=== PATIENT | male | born 1995 | race Caucasian/White ===

== ENCOUNTER 2016-07-27 21:29 | Emergency (ER) | payer SELFPAY ==
[~2016-07-27] VITALS: Ht 165.1 cm; Wt 65.8 kg
[2016-07-27 21:35] VITALS: BP 112/76
--- NOTE | 2016-07-27 22:10 | PHYS DOC ---
General Chief Complaint: SORE THROAT Stated Complaint: SORE THROAT X 2 WKS Time Seen by MD: 21:30 Source: patient Exam Limitations: no limitations Problems: History of Present Illness Initial Comments Pt is 20/M to ED with mom c/o ST. Pt states he's had a sore throat for two weeks. States it hurts badly enough that he's not eating solids just drinking. Has h/o tonsillitis, wanted to be sure no recurrance. He also states he's had strep exposure recently. No measured fevers, no chills/myalgias, no dyspnea/ramirez/dysphagia. OTC meds not helping. Still smoking cigarettes. Timing/Duration: gradual, last week Severity: moderate Location: throat Prearrival Treatment: over the counter meds Modifying Factors: worse with coughing Associated Symptoms: cough, malaise, poor solids intake, sore throat Allergies: Coded Allergies: Penicillins (Verified Allergy, Intermediate, Unknown, 07/27/16) Past Medical History Medical History: no pertinent history Surgical History: no surgical history Social History Smoker: cigarettes Alcohol: none Drugs: none Constitutional: denies chills, denies fever, malaise Ears: denies dizziness, denies pain, denies tinnitus Nose: denies congestion, denies epistaxis Throat: see HPIdenies neck stiffness Respiratory: denies cough, denies shortness of breath Cardiovascular: denies chest pain, denies palpitations Gastrointestinal: denies diarrhea, denies nausea, denies vomiting Neurological: denies headache, denies numbness, denies paresthesia Physical Exam General Appearance: WD/WN, no apparent distress Eyes: bilateral eye EOMI, bilateral eye PERRL, bilateral eye normal inspection Nose: normal inspection Mouth/Throat: other (pharynx beefy red with exudate, airway clear) Neck: trachea midline (tender shotty LA b/l) Cardiovascular/Respiratory: normal breath sounds, no respiratory distress Neurologic/Psychiatric: staff internist office based only II-XII nml as tested, no motor/sensory deficits, alert, normal mood/affect, oriented x 3 Skin: normal color, warm/dry Orders, Labs, Meds Advised to stop smoking. Pt expressed agreement/understanding with treatment plan. Departure Time of Disposition: 22:08 Disposition: 01 HOME, SELF-CARE Diagnosis: pharyngitis, tobaccoism Condition: GOOD Patient Instructions: Smoking, You Can Quit, [id number], Viral and Bacterial Pharyngitis, [id number] Additional Instructions: Rest, no strenuous activity. Aggressive hydration with gatorade, water. OTC tylenol/ibuprofen/analgesic throat sprays as needed. Stop smoking, seek medical assistance if necessary. Follow up with your doctor in 7-10 days if not better. Return to ED with new or changing symptoms. CHERELLE KRAUSE DO Jul 27, 2016 22:10
[2016-07-27] MEDS ORDERED: AZITHROMYCIN 250 MG TABLET. PO ONE (22:15)
== END 2016-07-27 22:40 | disposition home or self-care (01) ==
LOC: ER 21:29
DX: J02.9 Acute pharyngitis, unspecified (principal); F17.210 Nicotine dependence, cigarettes, uncomplicated; Z88.0 Allergy status to penicillin
CPT/HCPCS: 99282; J0456

== ENCOUNTER 2017-08-09 10:24 | Emergency (ER) | payer SELFPAY ==
[2017-08-09 10:30] VITALS: BP 141/91
--- NOTE | 2017-08-09 10:49 | PHYS DOC ---
Past History Past Medical History: Other Past Surgical History: No Surgical History Alcohol Use: Occasionally Additional Alcohol Information: reports hx of heavy alcohol use for a few years Drug Use: None Adult General Chief Complaint Chief Complaint: CONSTIPATION HPI HPI Patient is a 22 year old male who presents with superior pubic abdominal discomfort and no bowel movement within the last 5 days. He states usually he has 2 bowel movements a day about 5 days ago he hasn't had one. He's tried half of the container of MiraLAX, Ex-Lax pills and currently is drinking cran apple juice. He states the discomfort is above his iliac bone and is crampy in nature. He states he is passing gas but a small amount. He has no history of abdominal surgeries. 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 He states he's not been sick he's been feeling well. He has not had any nausea or vomiting or diarrhea. Face he did have a history of heavy alcohol abuse and used to drink a fifth a day for about a year and a stop doing that. He denies any dysuria. He states he's been urinating without any difficulty. Review of Systems Review of Systems Constitutional: Denies fever or chills [] Eyes: Denies change in visual acuity, redness, or eye pain [] HENT: Denies nasal congestion or sore throat [] Respiratory: Denies cough or shortness of breath [] Cardiovascular: No additional information not addressed in HPI [] GI: Positive for mild crampy-type suprapubic abdominal pain, Denies nausea, vomiting, bloody stools or diarrhea [] : Denies dysuria or hematuria [] Musculoskeletal: Denies back pain or joint pain [] Integument: Denies rash or skin lesions [] Neurologic: Denies headache, focal weakness or sensory changes [] Endocrine: Denies polyuria or polydipsia [] All other systems were reviewed and found to be within normal limits, except as documented in this note. Allergies Allergies Allergies Coded Allergies Type Severity Reaction Last Updated Verified Penicillins Allergy Intermediate Unknown 07/27/16 Yes Physical Exam Physical Exam Constitutional: Well developed, well nourished, no acute distress, non-toxic appearance. [] HENT: Normocephalic, atraumatic, bilateral external ears normal, oropharynx moist, no oral exudates, nose normal. [] Eyes: PERRLA, EOMI, conjunctiva normal, no discharge. [] Neck: Normal range of motion, no tenderness, supple, no stridor. [] Cardiovascular:Heart rate regular rhythm, no murmur [] Lungs & Thorax: Bilateral breath sounds clear to auscultation [] Abdomen: Bowel sounds normal, soft, no tenderness, no masses, no pulsatile masses. [] Skin: Warm, dry, no erythema, no rash. [] Back: No tenderness, no CVA tenderness. [] Extremities: No tenderness, no cyanosis, no clubbing, ROM intact, no edema. [] Neurologic: Alert and oriented X 3, normal motor function, normal sensory function, no focal deficits noted. [] Psychologic: Affect normal, judgement normal, mood normal. [] Current Patient Data Vital Signs Vital Signs Date Time Temp Pulse Resp B/P (MAP) Pulse Ox O2 Delivery O2 Flow Rate FiO2 08/09/17 10:30 98.2 83 18 100 Room Air EKG EKG [] Radiology/Procedures Radiology/Procedures [address] [address] IMAGING REPORT Signed PATIENT: MARY RILEY ACCOUNT: [id number] : 1995 LOCATION: ER AGE: 22 SEX: M EXAM STATUS: REG ER ORD. PHYSICIAN: RYLEE JUSTICE MD REASON: abd pain PROCEDURE: ACUTE ABDOMEN SERIES ACUTE ABDOMEN SERIES History: Abdominal pain, constipation Comparison: None. Findings: Single view of the chest and single supine and upright views of the abdomen are submitted. There is no infiltrate, pleural fluid, pneumothorax. There is no free air. There is nonobstructive bowel gas pattern. No unusual calcifications are identified of the abdomen or pelvis. Impression: 1. No acute radiographic abnormality is identified. Electronically signed by: Yuli Fu MD (08/09/2017 11:09 AM) [facility] DICTATED AND SIGNED BY: YULI FU MD DATE: 08/09/17 1107 CC: RYLEE JUSTICE MD; PCP,NO ~ Impressions: Constipation Course & Med Decision Making Course & Med Decision Making Pertinent Labs and Imaging studies reviewed. (See chart for details) Patient was given an enema and had some success in some relief. He states is crampy-type abdominal pain has significantly improved after the enema. He's requesting the go home and see if he can do additional enemas at home. He is instructed that if he has worsening pain fevers or other concerns return back to ER for additional testing. His mom's present in his conversation and is also agreeable to the plan. He is instructed to use mag citrate and Fleet enemas at home. Dragon Disclaimer Dragon Disclaimer This electronic medical record was generated, in whole or in part, using a voice recognition dictation system. Departure Departure: Impression: Primary Impression: Constipation Disposition: HOME, SELF-CARE Condition: STABLE Referrals: PCPJOHN (PCP) GARCÍA IRELAND MD Patient Instructions: Constipation, Adult Additional Instructions: You were seen today for your constipation. You can follow-up with GI. Please call Dr. Lundy's office and schedule follow-up appointment if this persists. He can use [id number] Fleet enemas and mag citrate. Both of these can be purchases without a prescription in the GI/constipation area of the pharmacy. If you develop worsening abdominal pain, fevers, uncontrolled nausea vomiting or other concerns please return back to the ER immediately for additional tests. Problem Qualifiers Primary Impression: Constipation Constipation type: unspecified constipation type Qualified Codes: K59.00 - Constipation, unspecified RYLEE JUSTICE MD Aug 09, 2017 10:49
--- NOTE | 2017-08-09 11:12 | RAD ---
ACUTE ABDOMEN SERIES History: Abdominal pain, constipation Comparison: None. Findings: Single view of the chest and single supine and upright views of the abdomen are submitted. There is no infiltrate, pleural fluid, pneumothorax. There is no free air. There is nonobstructive bowel gas pattern. No unusual calcifications are identified of the abdomen or pelvis. Impression: 1. No acute radiographic abnormality is identified. Electronically signed by: Zeeshan Abreu MD (08/09/2017 11:09 AM) [facility]
[2017-08-09] MEDS ORDERED: SODIUM PHOSPHATES 19/7GM 133 ML ENEMA. PR ONE ×2 (11:45→12:30)
== END 2017-08-09 12:35 | disposition home or self-care (01) ==
LOC: ER 10:24
DX: K59.00 Constipation, unspecified (principal); F10.10 Alcohol abuse, uncomplicated; Z88.0 Allergy status to penicillin
CPT/HCPCS: 74022; 99284

== ENCOUNTER 2017-08-13 01:39 | Emergency (ER) | payer SELFPAY ==
[~2017-08-13] VITALS: Ht 165.1 cm; Wt 65.8 kg
[2017-08-13 01:40] VITALS: BP 138/66
--- NOTE | 2017-08-13 02:25 | ED.ADGEN ---
Past History Past Medical History: Other Past Surgical History: No Surgical History Alcohol Use: Occasionally Drug Use: None Adult General Chief Complaint Chief Complaint Constipation HPI HPI Patient is a 22 year old ulcer and in the emergency department 3 days ago for constipation who presents with intermittent abdominal pain rating to left flank. Patient was given an enema emergency department has taken enemas at home in addition to magnesium citrate and MiraLAX. States he still has difficulty having bowel movements. Currently denies abdominal pain. No nausea or vomiting. Denies narcotic use or chronic constipation. No prior abdominal surgeries. Patient has not yet established with a primary care physician. Denies other symptoms or complaints. [] Review of Systems Review of Systems Review symptoms as per history of present illness. All other review symptoms are negative. All other systems were reviewed and found to be within normal limits, except as documented in this note. Allergies Allergies Allergies Coded Allergies Type Severity Reaction Last Updated Verified Penicillins Allergy Intermediate Unknown 07/27/16 Yes Physical Exam Physical Exam Constitutional: Well developed, well nourished, no acute distress, non-toxic appearance. [] HENT: Normocephalic, atraumatic, bilateral external ears normal, oropharynx moist, no oral exudates, nose normal. [] Eyes: PERRL Lungs & Thorax: Bilateral breath sounds clear to auscultation [] Abdomen: Bowel sounds normal, soft, bowel sounds, mild distention, no tenderness , rebound rigidity or guarding. [] rash. [] Back: No tenderness, no CVA tenderness. [] Extremities: No tenderness. [] Neurologic: Alert and oriented X 3, normal motor function, normal sensory function, no focal deficits noted. [] Psychologic: Affect normal, judgement normal, mood normal. [] EKG EKG [] Radiology/Procedures Radiology/Procedures [Acute abdominal series date 08/09/17 reviewed: No Acute findings per radiology report] Course & Med Decision Making Course & Med Decision Making Pertinent Labs and Imaging studies reviewed. (See chart for details) [Abdomen is soft, nonsurgical. Patient does not clinically have findings of bowel obstruction. Recent x-ray reviewed. Recommend GoLYTELY bowel prep, continue enemas and no local PCP follow-up.] Final Impression Final Impression [1. Abdominal pain 2. constipation] Problems: Dragon Disclaimer Dragon Disclaimer This electronic medical record was generated, in whole or in part, using a voice recognition dictation system. EMILY LIZ DO Aug 13, 2017 02:25
== END 2017-08-13 02:26 | disposition home or self-care (01) ==
LOC: ER 01:39
DX: K59.00 Constipation, unspecified (principal); Z88.0 Allergy status to penicillin
CPT/HCPCS: 99283

== ENCOUNTER 2018-09-08 08:39 | Emergency (ER) | payer BC ==
[~2018-09-08] VITALS: Ht 165.1 cm; Wt 77.5 kg
[2018-09-08] MEDS ORDERED: IV NORMAL SALINE 1,000ML 1,000 ML IV ONE (09:00)
[2018-09-08 09:09] LABS: BASO # 0.1 x10^3/uL (0.0-0.2); BASO % 1 % (0-3); EOS # 0.2 x10^3/uL (0.0-0.7); EOS % 3 % (0-3); HEMATOCRIT 44.4 % (39.0-53.0); HEMOGLOBIN 15.2 g/dL (13.0-17.5); LYMPH # 2.9 x10^3/uL (1.0-4.8); LYMPH % 34 % (24-48); MEAN CORPUSCULAR HEMOGLOBIN 29 pg (25-35); MEAN CORPUSCULAR HGB CONC 34 g/dL (31-37); MEAN CORPUSCULAR VOLUME 85 fL (79-100); MONO # 0.6 x10^3/uL (0.0-1.1); MONO % 7 % (0-9); NEUT # 4.7 x10^3uL (1.8-7.7); NEUT % 55 % (31-73); PLATELET COUNT 256 x10^3/uL (140-400); RED BLOOD COUNT 5.24 x10^6/uL (4.30-5.70); RED CELL DISTRIBUTION WIDTH 13.1 % (11.5-14.5); WHITE BLOOD COUNT 8.6 x10^3/uL (4.0-11.0)
--- NOTE | 2018-09-08 09:11 | EKG ---
[address] [address] Test Date: 2018-09-08 Test Time: 08:51:29 Pat Name: MARY RILEY Department: Room: Gender: M Switchboard Operator: : 1995 Requested By: EMILY GRAJEDA Order Number: [id number] Reading MD: Miller Huntley Measurements Intervals Divide Rate: 73 P: 53 NH: 180 QRS: 70 QRSD: 82 T: 44 QT: 362 QTc: 402 Interpretive Statements SINUS RHYTHM MILD NONSPECIFIC ST-T WAVE CHANGES. Electronically Signed On 09-10-2018 16:17:27 CDT by Miller Huntley
--- NOTE | 2018-09-08 09:16 | PHYS DOC ---
Past History Past Medical History: Other Past Surgical History: No Surgical History Alcohol Use: Occasionally Drug Use: None Adult General Chief Complaint Chief Complaint: Palpitations HPI HPI 23-year-old male presents with palpitations. Patient states that he has been feeling like his heart is flopping since September 02, 6 days ago. The feeling is intermittent, but is been more frequent the last 1 day. The patient is to drinking a large amount of alcohol on the , but none since. He smokes marijuana occasionally. He denies any other drug use. Last night, the patient felt like he was having multiple episodes and was unable to get very much sleep. He kept waking up when he did fall asleep. He admits that he could be some anxiety, but he is concerned there may be something else going on. 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 He is no longer getting treatment for this condition except for smoking marijuana. He denies fever, chills, or recent illness. Review of Systems Review of Systems Constitutional: Denies fever or chills [] Eyes: Denies change in visual acuity, redness, or eye pain [] HENT: Denies nasal congestion or sore throat [] Respiratory: Denies cough or shortness of breath [] Cardiovascular: No additional information not addressed in HPI [] GI: Denies abdominal pain, nausea, vomiting, bloody stools or diarrhea [] : Denies dysuria or hematuria [] Musculoskeletal: Denies back pain or joint pain [] Integument: Denies rash or skin lesions [] Neurologic: Denies headache, focal weakness or sensory changes [] Endocrine: Denies polyuria or polydipsia [] All other systems were reviewed and found to be within normal limits, except as documented in this note. Current Medications Current Medications Current Medications Medications (Trade) Dose Ordered Sig/Ty Start Time Stop Time Status Last Admin Dose Admin Sodium Chloride 1,000 ml @ 1,000 mls/hr 1X ONCE 09/08/18 09:00 09/08/18 09:59 09/08/18 09:10 1,000 MLS/HR Allergies Allergies Allergies Coded Allergies Type Severity Reaction Last Updated Verified Penicillins Allergy Intermediate Unknown 07/27/16 Yes Physical Exam Physical Exam Constitutional: Well developed, well nourished, no acute distress, non-toxic appearance. [] HENT: Normocephalic, atraumatic, bilateral external ears normal, oropharynx moist, no oral exudates, nose normal. [] Eyes: PERRLA, EOMI, conjunctiva normal, no discharge. [] Neck: Normal range of motion, no tenderness, supple, no stridor. [] Cardiovascular:Heart rate regular rhythm, no murmur [] Lungs & Thorax: Bilateral breath sounds clear to auscultation [] Abdomen: Bowel sounds normal, soft, no tenderness, no masses, no pulsatile masses. [] Skin: Warm, dry, no erythema, no rash. [] Back: No tenderness, no CVA tenderness. [] Extremities: No tenderness, no cyanosis, no clubbing, ROM intact, no edema. [] Neurologic: Alert and oriented X 3, normal motor function, normal sensory function, no focal deficits noted. [] Psychologic: Affect normal, judgement normal, mood anxious. [] EKG EKG Sinus rhythm, rate 73, normal axis, no ST elevations or depressions.[] Radiology/Procedures Radiology/Procedures [] Impressions: Chest, 2 views, 09/08/2018: HISTORY: Palpitations The heart size is normal. No pulmonary infiltrate is seen. There is no evidence of pleural fluid. IMPRESSION: No acute cardiopulmonary abnormality is detected. Electronically signed by: Bernard Gaitan MD (09/08/2018 9:46 AM) [facility] DICTATED AND SIGNED BY: BERNARD GAITAN MD DATE: 09/08/18 0946 CC: EMILY GRAJEDA DO; PCP,NO ~ Course & Med Decision Making Course & Med Decision Making Pertinent Labs and Imaging studies reviewed. (See chart for details) The patient's chest x-ray is unremarkable. His EKG is unremarkable. His labs are unremarkable. His troponin is negative. I believe the patient may be having an anxiety reaction more than anything. His original feeling could have been a side effect from his drinking, but being worried about a more serious condition may be exacerbating his symptoms. I will give him a trial prescription of hydroxyzine to try at home for intermittent anxiety. He will follow-up with his PCP as needed. He is stable for discharge at this time. [] Dragon Disclaimer Dragon Disclaimer This electronic medical record was generated, in whole or in part, using a voice recognition dictation system. Departure Departure: Impression: Primary Impression: Anxiety Additional Impression: Palpitations Disposition: 01 HOME, SELF-CARE Condition: STABLE Referrals: PCP,NO (PCP) Patient Instructions: Anxiety and Panic Attacks, Locx-[id number], Palpitations, Rdri-[id number] Scripts Hydroxyzine Hcl (HYDROXYZINE HCL) 25 Mg Tablet 1 TAB PO TID PRN for ANXIETY, #30 TAB Prov: EMILY GRAJEDA DO 09/08/18 Problem Qualifiers EMILY GRAJEDA DO September 08, 2018 09:16
[2018-09-08 09:28] LABS: ALBUMIN/GLOBULIN RATIO 1.1 (1.0-1.7); CALCIUM 9.6 mg/dL (8.5-10.1); CREATININE 1.1 mg/dL (0.7-1.3); GFR 83.7; POTASSIUM 3.7 mmol/L (3.5-5.1); TOTAL BILIRUBIN 0.6 mg/dL (0.2-1.0); TOTAL PROTEIN 7.7 g/dL (6.4-8.2)
--- NOTE | 2018-09-08 09:49 | RAD ---
Chest, 2 views, 09/08/2018: HISTORY: Palpitations The heart size is normal. No pulmonary infiltrate is seen. There is no evidence of pleural fluid. IMPRESSION: No acute cardiopulmonary abnormality is detected. Electronically signed by: Bernard Gaitan MD (09/08/2018 9:46 AM) [facility]
[2018-09-08 10:28] LABS: AMPHETAMINE/METHAMPHETAMINE NEG (NEG); BARBITURATES NEG (NEG); BENZODIAZEPINES NEG (NEG); CANNABINOIDS POS (NEG); COCAINE NEG (NEG); METHADONE NEG (NEG); OPIATES NEG (NEG); PHENCYCLIDINE NEG (NEG)
[2018-09-08 10:29] VITALS: BP 110/52
[2018-09-08 10:30] LABS: BILIRUBIN,URINE NEG (NEG); CLARITY,URINE CLEAR; COLOR,URINE YELLOW; GLUCOSE,URINE NEG (NEG)
[2018-09-08 10:31] LABS: BACTERIA,URINE 0 /HPF (0-FEW); NITRITE,URINE NEG (NEG); RBC,URINE RARE /HPF (0-2); SQUAMOUS EPITHELIAL CELL,UR OCC /LPF; UROBILINOGEN,URINE 0.2 mg/dL (0.2 mg/dL); WBC,URINE RARE /HPF (0-4)
[2018-09-08] MEDS ORDERED: HYDR25TA PO (10:33)
== END 2018-09-08 10:55 | disposition home or self-care (01) ==
LOC: ER 08:39
DX: F41.9 Anxiety disorder, unspecified (principal); F12.90 Cannabis use, unspecified, uncomplicated; Z88.0 Allergy status to penicillin
CPT/HCPCS: 36415; 71046; 80053; 80307; 81001; 84484; 85025; 93005; 99285-25; J7030

== ENCOUNTER 2020-09-12 22:16 | Emergency (ER) | payer SELFPAY ==
[~2020-09-12] VITALS: Ht 165.1 cm; Wt 77.5 kg
[~2020-09-12 22:16] MED LIST: HYDR25TA PO
[2020-09-12 22:30] VITALS: BP 130/83
--- NOTE | 2020-09-12 23:35 | PHYS DOC ---
Past History Past Medical History: Other Past Surgical History: No Surgical History Alcohol Use: Occasionally Drug Use: Marijuana General Adult EDM: Chief Complaint: SEXUALLY TRANSMITTED DISEASE HPI: HPI: 25-year-old male presents with dysuria. Patient states that he is having burning with urination. He is concerned about STD but admits he has not had sex in a couple months. He has never had symptoms like this before. No history of UTIs. He denies any rash on around the genitals. No urethral discharge. He has no other complaints this time. Review of Systems: Review of Systems: Constitutional: Denies fever or chills Eyes: Denies change in visual acuity HENT: Denies nasal congestion or sore throat Respiratory: Denies cough or shortness of breath Cardiovascular: Denies chest pain or edema GI: Denies abdominal pain, nausea, vomiting, bloody stools or diarrhea : Dysuria Musculoskeletal: Denies back pain or joint pain Integument: Denies rash Neurologic: Denies headache, focal weakness or sensory changes Endocrine: Denies polyuria or polydipsia Lymphatic: Denies swollen glands Psychiatric: Denies depression or anxiety Allergies: Allergies: Allergies Coded Allergies Type Severity Reaction Last Updated Verified Penicillins Allergy Intermediate Unknown 07/27/16 Yes Physical Exam: PE: Constitutional: Well developed, well nourished, no acute distress, non-toxic appearance. [] HENT: Normocephalic, atraumatic, bilateral external ears normal, oropharynx moist, no oral exudates, nose normal. [] Eyes: PERRLA, EOMI, conjunctiva normal, no discharge. [] Neck: Normal range of motion, no tenderness, supple, no stridor. [] Cardiovascular:Heart rate regular rhythm, no murmur [] Lungs & Thorax: Bilateral breath sounds clear to auscultation [] Abdomen: Bowel sounds normal, soft, no tenderness, no masses, no pulsatile masses. [] Skin: Warm, dry, no erythema, no rash. [] Back: No tenderness, no CVA tenderness. [] Extremities: No tenderness, no cyanosis, no clubbing, ROM intact, no edema. [] Neurologic: Alert and oriented X 3, normal motor function, normal sensory func tion, no focal deficits noted. [] Psychologic: Affect normal, judgement normal, mood normal. : refused by patient, just wants urinalysis [] EKG: EKG: [] Radiology/Procedures: Radiology/Procedures: [] Heart Score: C/O Chest Pain: N/A Risk Factors: Risk Factors: DM, Current or recent (<one month) smoker, HTN, HLP, family history of CAD, obesity. Risk Scores: Score 0 - 3: 2.5% MACE over next 6 weeks - Discharge Home Score 4 - 6: 20.3% MACE over next 6 weeks - Admit for Clinical Observation Score 7 - 10: 72.7% MACE over next 6 weeks - Early Invasive Strategies Course & Med Decision Making: Course & Med Decision Making Pertinent Labs and Imaging studies reviewed. (See chart for details) The patient's urinalysis is negative for infection. His GC chlamydia is pending. We will notify him if he needs treatment. This is likely just temporary irritation. He is stable for discharge at this time. [] Dragon Disclaimer: Dragon Disclaimer: This electronic medical record was generated, in whole or in part, using a voice recognition dictation system. Departure Departure: Impression: Primary Impression: Dysuria Disposition: HOME / SELF CARE / HOMELESS Condition: STABLE Referrals: PCP,NO (PCP) Patient Instructions: Dysuria EMILY GRAJEDA DO September 12, 2020 23:34
[2020-09-13 00:03] LABS: BACTERIA,URINE 0 /HPF (0-FEW); BILIRUBIN,URINE NEG (NEG); CLARITY,URINE CLEAR; COLOR,URINE COLORLESS; GLUCOSE,URINE NEG (NEG); NITRITE,URINE NEG (NEG); RBC,URINE 0 /HPF (0-2); UROBILINOGEN,URINE 0.2 mg/dL (0.2 mg/dL); WBC,URINE RARE /HPF (0-4)
[2020-09-13] MEDS ORDERED: ONDA4TAB12 PO (22:26)
[2020-09-13] MEDS ORDERED: FAMO-63 PO (22:26)
== END 2020-09-13 00:50 | disposition home or self-care (01) ==
LOC: ER 22:16
DX: R30.0 Dysuria (principal); F12.10 Cannabis abuse, uncomplicated; Z88.0 Allergy status to penicillin
CPT/HCPCS: 36415; 81001; 87491; 87591; 99283

== ENCOUNTER 2020-09-13 20:46 | Emergency (ER) | payer SELFPAY ==
[~2020-09-13] VITALS: Ht 165.1 cm; Wt 71.0 kg
[2020-09-13] MEDS ORDERED: IV NORMAL SALINE 1,000ML 1,000 ML IV ONE (21:30)
[2020-09-13] MEDS ORDERED: FAMOTIDINE 20 MG/2 ML VIAL IVP ONE (21:30)
[2020-09-13] MEDS ORDERED: ONDANSETRON PF 4 MG/2 ML VIAL. IVP ONE (21:30)
[2020-09-13] MEDS ORDERED: KETOROLAC 15 MG/ML VIAL. IVP ONE (21:30)
[2020-09-13 21:51] LABS: BACTERIA,URINE 0 /HPF (0-FEW); BILIRUBIN,URINE NEG (NEG); CLARITY,URINE CLEAR; COLOR,URINE YELLOW; GLUCOSE,URINE NEG (NEG); NITRITE,URINE NEG (NEG); RBC,URINE 0 /HPF (0-2); SQUAMOUS EPITHELIAL CELL,UR OCC /LPF; UROBILINOGEN,URINE 0.2 mg/dL (0.2 mg/dL); WBC,URINE 0 /HPF (0-4)
--- NOTE | 2020-09-13 22:01 | PHYS DOC ---
Past History Past Medical History: No Pertinent History Past Surgical History: No Surgical History Alcohol Use: None Drug Use: Marijuana General Adult EDM: Chief Complaint: NAUSEA/VOMITING/DIARRHEA HPI: HPI: Patient is a [age] year old [sex] who presents with [] Review of Systems: Review of Systems: Constitutional: Denies fever or chills Eyes: Denies redness or eye pain HENT: Denies nasal congestion or sore throat Respiratory: Denies cough or shortness of breath Cardiovascular: Denies chest pain or palpitations GI: Denies abdominal pain, nausea, or vomiting : Denies dysuria or hematuria Musculoskeletal: Denies back pain or joint pain Integument: Denies rash or skin lesions Neurologic: Denies headache, focal weakness or sensory changes Complete systems were reviewed and found to be within normal limits, except as documented in this note. Current Medications: Current Meds: Current Medications Medications (Trade) Dose Ordered Sig/Ty Start Time Stop Time Status Last Admin Dose Admin Famotidine (Pepcid Vial) 20 mg 1X ONCE 09/13/20 21:30 09/13/20 21:34 DC 09/13/20 21:47 20 MG Ketorolac Tromethamine (Toradol 15mg Vial) 15 mg 1X ONCE 09/13/20 21:30 09/13/20 21:34 DC 09/13/20 21:48 15 MG Ondansetron HCl (Zofran) 4 mg 1X ONCE 09/13/20 21:30 09/13/20 21:34 DC 09/13/20 21:48 4 MG Sodium Chloride 1,000 ml @ 1,000 mls/hr 1X ONCE 09/13/20 21:30 09/13/20 22:29 09/13/20 21:47 1,000 MLS/HR Allergies: Allergies: Allergies Coded Allergies Type Severity Reaction Last Updated Verified Penicillins Allergy Intermediate Unknown 07/27/16 Yes Physical Exam: PE: Constitutional: Well developed, well nourished, no acute distress, non-toxic appearance HENT: Normocephalic, atraumatic Eyes: PERRL, EOMI, conjunctiva normal, no discharge Neck: Normal range of motion, no tenderness, supple Lungs & Thorax: No respiratory distress, equal chest rise and fall Abdomen: Soft, no tenderness Skin: Warm, dry, no erythema, no rash Back: No tenderness, no CVA tenderness Extremities: No tenderness, ROM intact, no edema Neurologic: Alert and oriented X 3, normal motor function, normal sensory function, no focal deficits noted Psychologic: Affect normal, judgment normal Current Patient Data: Labs: Laboratory Tests Test 09/13/20 20:55 Urine Collection Type Unknown Urine Color Yellow Urine Clarity Clear Urine pH 6.5 Urine Specific [place] <=1.005 Urine Protein Neg (NEG-TRACE) Urine Glucose (UA) Neg mg/dL (NEG) Urine Ketones (Stick) Neg mg/dL (NEG) Urine Blood Neg (NEG) Urine Nitrite Neg (NEG) Urine Bilirubin Neg (NEG) Urine Urobilinogen Dipstick 0.2 mg/dL (0.2 mg/dL) Urine Leukocyte Esterase Neg (NEG) Urine RBC 0 /HPF (0-2) Urine WBC 0 /HPF (0-4) Urine Squamous Epithelial Cells Occ /LPF Urine Bacteria 0 /HPF (0-FEW) Vital Signs: Vital Signs Date Time Temp Pulse Resp B/P (MAP) Pulse Ox O2 Delivery O2 Flow Rate FiO2 09/13/20 20:46 98.1 68 18 156/89 (111) 98 Room Air EKG: EKG: [] Radiology/Procedures: Radiology/Procedures: [] Heart Score: C/O Chest Pain: N/A Course & Med Decision Making: Course & Med Decision Making Pertinent Lab studies reviewed. (See chart for details) Patient stable for discharge with outpatient follow-up with PCP. Discussed find ings and plan with patient, who acknowledges understanding and agreement. [place] Disclaimer: [place] Disclaimer: This electronic medical record was generated, in whole or in part, using a voice recognition dictation system. Departure Departure: Impression: Primary Impression: Nausea & vomiting Qualified Codes: R11.2 - Nausea with vomiting, unspecified Disposition: HOME / SELF CARE / HOMELESS Condition: STABLE Referrals: PCP,NO (PCP) Patient Instructions: Clear Liquid Diet, [id number], Nausea and Vomiting, [id number] Scripts Famotidine (PEPCID) 20 Mg Tablet 1 TAB PO BID for Gastritis, #10 TAB Prov: MAR DARBY DO 09/13/20 Ondansetron (ONDANSETRON ODT) 4 Mg Tab.rapdis 1 TAB PO PRN Q6-8HRS PRN for NAUSEA, #16 TAB Prov: MAR DARBY DO 09/13/20 MAR DARBY DO September 13, 2020 22:01
[2020-09-13 22:16] LABS: CALCIUM 9.5 mg/dL (8.5-10.1); GFR 91.8; POTASSIUM 3.8 mmol/L (3.5-5.1)
[2020-09-13 22:22] LABS: ALBUMIN 4.2 g/dL (3.4-5.0); ALBUMIN/GLOBULIN RATIO 1.3 (1.0-1.7); TOTAL BILIRUBIN 0.4 mg/dL (0.2-1.0); TOTAL PROTEIN 7.5 g/dL (6.4-8.2)
[2020-09-13 22:23] LABS: BASO % 1 % (0-3); EOS # 0.1 x10^3/uL (0.0-0.7); EOS % 1 % (0-3); HEMATOCRIT 45.4 % (39.0-53.0); HEMOGLOBIN 15.4 g/dL (13.0-17.5); LYMPH % 28 % (24-48); MEAN CORPUSCULAR HEMOGLOBIN 30 pg (25-35); MEAN CORPUSCULAR HGB CONC 34 g/dL (31-37); MEAN CORPUSCULAR VOLUME 88 fL (79-100); MONO # 0.5 x10^3/uL (0.0-1.1); MONO % 7 % (0-9); NEUT # 4.5 x10^3uL (1.8-7.7); NEUT % 63 % (31-73); PLATELET COUNT 216 x10^3/uL (140-400); RED BLOOD COUNT 5.19 x10^6/uL (4.30-5.70); RED CELL DISTRIBUTION WIDTH 13.1 % (11.5-14.5); WHITE BLOOD COUNT 7.2 x10^3/uL (4.0-11.0)
[2020-09-13] MEDS ORDERED: ONDA4TAB12 PO (22:26)
[2020-09-13] MEDS ORDERED: FAMO-63 PO (22:26)
[2020-09-13 22:35] VITALS: BP 126/77
== END 2020-09-13 22:35 | disposition home or self-care (01) ==
LOC: ER 20:46
DX: R11.2 Nausea with vomiting, unspecified (principal); Z88.0 Allergy status to penicillin
CPT/HCPCS: 36415; 80053; 81001; 83690; 83735; 85025; 96361; 96374; 96375; 99284; J1885; J2405; J3490; J7030

== ENCOUNTER 2021-05-02 19:17 | Emergency (ER) | payer SELFPAY ==
[~2021-05-02] VITALS: Ht 165.1 cm; Wt 69.4 kg
[~2021-05-02 19:17] MED LIST changes: +FAMO-63 PO; +ONDA4TAB12 PO
[2021-05-02 19:20] VITALS: BP 134/71
--- NOTE | 2021-05-02 19:27 | PHYS DOC ---
Past History Past Medical History: No Pertinent History Past Surgical History: No Surgical History Smoking: Cigarettes Alcohol Use: None Drug Use: Marijuana Adult General HPI HPI Patient is a 25-year-old male who presents with acute onset left-sided flank pain which started earlier today, 6 out of 10, sharp in nature with some radiation down to his groin. States he had not had anything like this before. Denies any recent travels, traumas, illnesses, fevers, chest pain or shortness of breath, other abdominal pain, nausea, vomiting. Denies any dysuria, hematuria or penile discharge. States he took some Tylenol earlier which only provided minimal relief. Review of Systems Review of Systems Review of systems otherwise unremarkable except noted in HPI Allergies Allergies Allergies Coded Allergies Type Severity Reaction Last Updated Verified Penicillins Allergy Intermediate Unknown 07/27/16 Yes Physical Exam Physical Exam Constitutional: Well developed, well nourished, no acute distress, non-toxic appearance. [] HENT: Normocephalic, atraumatic, bilateral external ears normal, oropharynx moist, no oral exudates, nose normal. [] Eyes: conjunctiva normal, no discharge. [] Neck: Normal range of motion, no tenderness, Cardiovascular:Heart rate regular rhythm, no murmur [] Lungs & Thorax: Bilateral breath sounds clear to auscultation [] Abdomen: soft, no tenderness, no masses, no pulsatile masses. [] Skin: Warm, dry, no erythema, no rash. [] Back: No tenderness, no CVA tenderness. [] Extremities: No tenderness, no cyanosis, no clubbing, ROM intact, no edema. [] Neurologic: Alert and oriented X 3, normal motor function, normal sensory function, no focal deficits noted. [] Psychologic: Affect normal, judgement normal, mood normal. [] EKG EKG [] Radiology/Procedures Radiology/Procedures [] FINDINGS: Heart size is normal. No pericardial effusion. Visualized lung bases are clear. No pleural effusion. Evaluation of solid organs limited secondary to noncontrast technique. Liver, spleen, pancreas, gallbladder and adrenals are unremarkable. No perinephric inflammation or hydronephrosis. No renal or ureteral calculi are identified. Bladder is partially distended and not well evaluated. Prostate is not enlarged. There is diffuse wall thickening noted at the distal sigmoid colon/rectum. There is mild adjacent fat stranding. Remainder of the large and small bowel are unremarkable. Moderate amount stool is noted throughout the colon. Appendix is normal. No free intra-abdominal air or fluid. No obstruction. Abdominal aorta has normal course and caliber. No enlarged intra-abdominal lymph nodes are identified. No suspicious osseous lesions or acute fractures. IMPRESSION: 1. No renal or ureteral calculi. No evidence for obstructive uropathy. 2. Diffuse wall thickening at the sigmoid colon/rectum, may relate to colitis. Correlate with symptomatology. Direct visualization may be indicated Heart Score C/O Chest Pain: No Risk Factors: Risk Factors: DM, Current or recent (<one month) smoker, HTN, HLP, family history of CAD, obesity. Risk Scores: Risk Factors: DM, Current or recent (<one month) smoker, HTN, HLP, family history of CAD, obesity. Course & Med Decision Making Course & Med Decision Making Patient is a 25-year-old male who presents with left flank pain Vital signs not concerning. Physical exam noted above. Given pain medicine in the ED. Discussed all findings with patient and possibility of some infectious versus inflammatory colitis. Offered further work-up in the emergency department and admission if needed, but patient stated he did not want to be admitted to the hospital and wanted to be discharged home. Discussed the risks including continued pain, infection, and need for h ospitalization at a later date. Patient states that he would follow-up with his primary care physician. Started on antibiotics and given pain and nausea medicine for home. [] Dragon Disclaimer Dragon Disclaimer This electronic medical record was generated, in whole or in part, using a voice recognition dictation system. Departure Departure: Impression: Primary Impression: Colitis Disposition: 01 HOME / SELF CARE / HOMELESS Condition: STABLE Referrals: PCP,NO (PCP) ROWENA VALDEZ MD Patient Instructions: Colitis Additional Instructions: Thank you for coming into the emergency department tonight and allowing us to take care of you. Please read the attached information carefully to go back over some of the things we discussed. Please take antibiotics as prescribed and until gone. Please use your pain and nausea medicine as we discussed to allow hydration. Please eat a light clear diet over the next couple of days and stay away from any foods that are heavy as we discussed. It is very important that you follow-up as soon as possible with your primary care physician. If you do not have one you can call the 1 at the number provided to establish care. You are also free clinics in the area at [facility] that she could call. Please call one of them first thing in the morning. Please come back to the emergency department immediately with any new or concerning symptoms for further work-up and evaluation as we discussed. Scripts Metronidazole (METRONIDAZOLE) 500 Mg Tablet 1 TAB PO BID for colitis for 10 Days, #19 TAB 0 Refills Prov: MARY IBANEZ MD 05/02/21 Ciprofloxacin Hcl (CIPRO) 500 Mg Tablet 1 TAB PO BID for colitis for 10 Days, #19 TAB 0 Refills Prov: MARY IBANEZ MD 05/02/21 MARY IBANEZ MD May 02, 2021 19:27
[2021-05-02] MEDS ORDERED: ACETAMINOPHEN 500 MG TABLET PO ONE (19:30)
--- NOTE | 2021-05-02 20:06 | RAD ---
Exam: CT of abdomen and pelvis without contrast INDICATION: Flank pain TECHNIQUE: Sequential axial images through the abdomen and pelvis obtained without IV contrast. Sagit jillian and coronal reformatted images were reconstructed from the axial data and reviewed. Exposure: One or more of the following in the visualized dose reduction techniques were utilized for this examination: 1. Automated exposure control 2. Adjustment of the MA and/or KV according to patient size 3. Use of iterative of reconstructive technique Comparisons: None FINDINGS: Heart size is normal. No pericardial effusion. Visualized lung bases are clear. No pleural effusion. Evaluation of solid organs limited secondary to noncontrast technique. Liver, spleen, pancreas, gallbladder and adrenals are unremarkable. No perinephric inflammation or hydronephrosis. No renal or ureteral calculi are identified. Bladder is partially distended and not well evaluated. Prostate is not enlarged. There is diffuse wall thickening noted at the distal sigmoid colon/rectum. There is mild adjacent fat stranding. Remainder of the large and small bowel are unremarkable. Moderate amount stool is noted t hroughout the colon. Appendix is normal. No free intra-abdominal air or fluid. No obstruction. Abdominal aorta has normal course and caliber. No enlarged intra-abdominal lymph nodes are identified. No suspicious osseous lesions or acute fractures. IMPRESSION: 1. No renal or ureteral calculi. No evidence for obstructive uropathy. 2. Diffuse wall thickening at the sigmoid colon/rectum, may relate to colitis. Correlate with sympto matology. Direct visualization may be indicated Electronically signed by: Fern Blake MD (05/02/2021 8:03 PM) [facility]
[2021-05-02 20:34] LABS: BACTERIA,URINE 0 /HPF (0-FEW); BILIRUBIN,URINE NEG (NEG); CLARITY,URINE CLEAR; COLOR,URINE YELLOW; GLUCOSE,URINE NEG (NEG); NITRITE,URINE NEG (NEG); RBC,URINE 0 /HPF (0-2); UROBILINOGEN,URINE 0.2 mg/dL (0.2 mg/dL); WBC,URINE RARE /HPF (0-4)
[2021-05-02] MEDS ORDERED: ACETAMINOPHEN/CODEINE 300/30MG 4TABLET STARTPACK. PO ONE (20:45)
[2021-05-02] MEDS ORDERED: metroNIDAZOLE 500 MG TABLET PO ONE (20:45)
[2021-05-02] MEDS ORDERED: ONDANSETRON 4MG ODT 4TABLET STARTPACK. PO ONE (20:45)
[2021-05-02] MEDS ORDERED: CIPROFLOXACIN HCL 500 MG TABLET PO ONE (20:45)
[2021-05-02] MEDS ORDERED: METR-34 PO (21:00)
[2021-05-02] MEDS ORDERED: CIPR500T94 PO (21:00)
== END 2021-05-02 21:10 | disposition home or self-care (01) ==
LOC: ER 19:17
DX: K52.9 Noninfective gastroenteritis and colitis, unspecified (principal); F17.210 Nicotine dependence, cigarettes, uncomplicated; Z88.0 Allergy status to penicillin
CPT/HCPCS: 74176; 81001; 99284; Q0162